=== PATIENT | female | born 1965 | race Caucasian/White ===

== ENCOUNTER 2024-02-15 10:15 | Emergency (ER) | payer MEDICAID ==
[~2024-02-15] VITALS: Ht 160 cm; Wt 81.6 kg
[2024-02-15 10:31] VITALS: BP_SYST 132; PULSE 93; RESP 18; TEMP 98; O2SAT 99
[2024-02-15 11:07] LABS: BASOPHILS # (AUTO) 0.1 K/uL (0.0-0.2); BASOPHILS % (AUTO) 0.8 % (0.0-2.0); EOSINOPHILS % (AUTO) 0.5 % (0.0-4.0); HEMATOCRIT 42.4 % (36-48); HEMOGLOBIN 14.4 g/dL (12.0-16.0); LYMPHOCYTES # (AUTO) 2.2 K/uL (1.0-5.5); LYMPHOCYTES % (AUTO) 32.7 % (20.5-51.5); MEAN CORPUSCULAR HEMOGLOBIN 30 pg (27-31); MEAN CORPUSCULAR HGB CONC 34 % (32-36); MEAN CORPUSCULAR VOLUME 87 fL (79.0-98.0); MONOCYTES # (AUTO) 0.3 K/uL (0.0-1.0); NEUTROPHILS # (AUTO) 4.1 K/uL (1.8-7.7); PLATELET COUNT (AUTO) 257 K/uL (130-430); RED BLOOD CELL COUNT(AUTO) 4.89 MIL/uL (4.2-6.2); RED CELL DISTRIBUTION WIDTH 13.3 % (9.0-15.0); WHITE BLOOD COUNT (AUTO) 6.8 K/uL (4.8-10.8)
[2024-02-15] MEDS ORDERED: METF-1069 PO (11:07)
[2024-02-15 11:17] LABS: CALCIUM 9.5 mg/dL (8.4-11.0); CREATININE 0.76 mg/dL (0.55-1.30); POTASSIUM 3.9 mmol/L (3.5-5.1)
[2024-02-15 11:18] LABS: BILIRUBIN,URINE NEGATIVE (NEGATIVE); CLARITY/URINE CLEAR (CLEAR); COLOR,URINE YELLOW (YELLOW); GLUCOSE,URINE TRACE (NEGATIVE); KETONES,URINE 3+ (NEGATIVE); LEUKOCYTE ESTERASE ,URINE NEGATIVE (NEGATIVE); NITRITE, URINE NEGATIVE (NEGATIVE); PROTEIN URINE 1+ (NEGATIVE); UROBILINOGEN,URINE 0.2 (0.2-1.0)
[2024-02-15] MEDS: NS 500 ML IV ONE (11:29)
[2024-02-15 11:33] LABS: BLOOD, URINE TRACE (NEGATIVE)
[2024-02-15 11:36] LABS: BACTERIA,URINE FEW /HPF (None Seen); HYALINE CASTS, URINE 0 - 1 /LPF (None Seen); WBC,URINE 0-3 /HPF (0-3)
[2024-02-15] MEDS: INSULIN REGULAR, HUMAN 10 UNITS/0.1 ML, 3 ML VIAL SUBCUT ONE (12:12)
[2024-02-15 12:27] VITALS: BP_SYST 124; PULSE 87; RESP 20; TEMP 97.8; O2SAT 96
== END 2024-02-15 12:29 | disposition home or self-care (01) ==
LOC: SED 10:15
DX: R80.9 Proteinuria, unspecified (principal); E11.65 Type 2 diabetes mellitus with hyperglycemia; R73.9 Hyperglycemia, unspecified; M54.50 Low back pain, unspecified; Z79.899 Other long term (current) drug therapy
CPT/HCPCS: 99283; 96360; 80048; 81000; 81001; 85025; 36415; 96372; 82948; 81015; J1815; J7030

== ENCOUNTER 2024-03-02 16:03 | Emergency (ER) | payer MEDICAID ==
[~2024-03-02] VITALS: Ht 160 cm; Wt 74.8 kg
[~2024-03-02 16:03] MED LIST: METF-1069 PO
[2024-03-02 16:35] VITALS: BP_SYST 127; PULSE 73; RESP 18; TEMP 97.4; O2SAT 100
[2024-03-02 17:27] LABS: BASOPHILS # (AUTO) 0.1 K/uL (0.0-0.2); BASOPHILS % (AUTO) 0.9 % (0.0-2.0); EOSINOPHILS # (AUTO) 0.1 K/uL (0.0-0.4); EOSINOPHILS % (AUTO) 1.3 % (0.0-4.0); HEMATOCRIT 39.2 % (36-48); HEMOGLOBIN 13.2 g/dL (12.0-16.0); LYMPHOCYTES # (AUTO) 3.4 K/uL (1.0-5.5); LYMPHOCYTES % (AUTO) 46.3 % (20.5-51.5); MEAN CORPUSCULAR HEMOGLOBIN 30 pg (27-31); MEAN CORPUSCULAR HGB CONC 34 % (32-36); MEAN CORPUSCULAR VOLUME 88 fL (79.0-98.0); MONOCYTES # (AUTO) 0.5 K/uL (0.0-1.0); MONOCYTES % (AUTO) 7.3 % (1.7-9.3); NEUTROPHILS # (AUTO) 3.2 K/uL (1.8-7.7); NEUTROPHILS % (AUTO) 44.2 % (40.0-70.0); PLATELET COUNT (AUTO) 187 K/uL (130-430); RED BLOOD CELL COUNT(AUTO) 4.47 MIL/uL (4.2-6.2); RED CELL DISTRIBUTION WIDTH 14.1 % (9.0-15.0); WHITE BLOOD COUNT (AUTO) 7.3 K/uL (4.8-10.8)
[2024-03-02 17:55] LABS: PROTHROMBIN TIME 10.6 SECS (9.5-12.5)
[2024-03-02 18:19] LABS: ANION GAP 6 (5-15); CALCIUM 8.7 mg/dL (8.4-11.0); CARBON DIOXIDE 29 mmol/L (23-29); CHLORIDE 110 mmol/L (98-107); CREATININE 0.69 mg/dL (0.55-1.30); GFR AFRICAN AMERICAN 113 mL/min (>90); GFR NON AFRICAN-AMERICAN 93 mL/min (>90); GLUCOSE 112 mg/dL (74-106); POTASSIUM 4.3 mmol/L (3.5-5.1); SODIUM SERUM 145 mmol/L (136-145); UREA NITROGEN, BLOOD 7 mg/dL (8-21)
== END 2024-03-02 18:58 | disposition home or self-care (01) ==
LOC: SED 16:03
DX: R20.2 Paresthesia of skin (principal); E11.9 Type 2 diabetes mellitus without complications; Z79.899 Other long term (current) drug therapy
CPT/HCPCS: 36415; 70450-TC; 71045; 80048; 84484; 85025; 85610; 85730; 99284